=== PATIENT | female | born 1955 | race Caucasian/White ===

== ENCOUNTER → 2018-12-02 | Outpatient (CLI) | payer OTHER ==
[~2018-12-02] MED LIST: ADVAIR HFA 230M12 GM INH; AZITHROMYCIN 2250 MG PO; BREO ELLIPTA 11 EACH; FLONASE 0.05%50 MCG NASAL; LEVAQUIN 750 M750 MG PO; MUCINEX TA600 MG/TA2; PREDNISONE 10 M10 MG PO; PREDNISONE50 MG PO; PROMETHAZINE-C120 ML PO; SINGULAIR 10 MG10 M1 PO; SYMBICORT160 MCG/4. INH; UNICOMPLEX M TA1 TA1; VENTOLIN HFA 1818 GM INH; ZYRTEC10 M5 PO
== END ==
LOC: M.RAD 06:40
DX: Z12.31 Encounter for screening mammogram for malignant neoplasm of breast (principal)